=== PATIENT | male | born 1960 ===

== ENCOUNTER 2020-01-17 06:42 | Day surgery (SDC) | payer BC ==
[~2020-01-17] VITALS: Ht 180.3 cm; Wt 86.9 kg
[~2020-01-17 06:42] MED LIST: IBUP200 PO; LISI20 PO
== END 2020-01-17 08:41 | disposition home or self-care (01) ==
LOC: ORSCSDS 06:42
PROVIDERS: Surgery
PROC: 0DBN8ZX Excision of Sigmoid Colon, Via Natural or Artificial Opening Endoscopic, Diagnostic (ICD-10-PCS; principal; 2020-01-17 08:00)
DX: Z12.11 Encounter for screening for malignant neoplasm of colon (principal); Z86.010 Personal history of colon polyps; D12.5 Benign neoplasm of sigmoid colon; I10 Essential (primary) hypertension; Z79.899 Other long term (current) drug therapy
CPT/HCPCS: 88305; J0330; J0461; J2405; J2704; J7120